=== PATIENT | male | born 1985 | race Asian ===

== ENCOUNTER 2016-10-03 07:51 | Emergency (ER) | payer BC ==
[2016-10-03 08:24] VITALS: BP 135/85
--- NOTE | 2016-10-03 08:48 | RAD ---
Indication: Chest discomfort. 2 views of the chest demonstrate no mediastinal shift. Heart is of normal size and configuration. Lung esquivel are clear. When compared to previous exam of October 30, 2013 no significant change is noted. IMPRESSION: No active cardiopulmonary disease is noted.
--- NOTE | 2016-10-03 09:06 | UC ---
Rhys, Abram Waters, [facility] 10[facility]03[facility]16 at 0856 . Cardiac HPI - HPI Summary HPI Summary: Nurse's Note; pt c/o cough. pt states "after coughing constantly i began to have chest pain to the lt side of my chest." pt states the pain comes with coughing. pt states he vomited this am and then his jaw started to hurt. pt states he began to have cold like symptoms yesterday. MD Note; bital, resp 18, pulse 96, 4/10, rare alcohol use, non-smoker, previous visits for cough, chest pain, and SOB dating back to 2009 otherwise non- contributory. Note EKG NSR no ischemia, CXR no acute disease. In Room Note; A 31 y/o male presents to [facility] with left sided chest pain since yesterday. The pain is rated 4/10 in severity and radiates into the jaw bilaterally. The patient states that he left work early yesterday after not feeling well. Once he got home, he began to have cough followed by chest pain, mild back pain, vomiting - only last night, and rhinorrhea. The patient's chest pain is constant and worse with coughing and laying in certain position. The jaw pain is also worse with coughing. He denies difficulty swallowing and diarrhea. FHx of CAD - mother had MT at approximately 55. After the patient had his wisdom teeth removed so time ago, he's been having clicking in the jaw. He also has a Hx of GERD and costochondritis of the sternum. - History of Current Complaint Chief Complaint: UCRespiratory Stated Complaint: CHEST PAIN JAW PAIN Time Seen by Provider: 10/03/16 08:08 Hx Obtained From: Patient Onset/Duration: Lasting Days, Still Present Timing: Constant Initial Severity: Moderate Current Severity: Moderate Pain Intensity: 4 Chest Pain Location: Left Lateral Aggravating: Position Associated Signs & Symptoms: Positive: Chest Pain, Nausea/Vomiting - vomiting yesterday only, Back Pain - mild - Allergy/Home Medications Allergies/Adverse Reactions: Allergies Allergy/AdvReac Type Severity Reaction Status Date / Time No Known Allergies Allergy Verified 08/29/14 19:46 Home Medications: Home Medications Acetaminophen [Acetaminophen Extra Stren] 500 mg PO 10/03/16 [History] PMH/Surg Hx/FS Hx/Imm Hx Endocrine History Of: Denies: Diabetes, Thyroid Disease Cardiovascular History Of: Denies: Cardiac Disorders, Hypertension Respiratory History Of: Denies: COPD, Asthma GI/ History Of: Denies: Ulcer - Surgical History Surgery Procedure, Year, and Place: [place]eth - Family History Known Family History: Positive: Cardiac Disease - Mother had an MT at ~55 - Social History Occupation: Employed Full-time Alcohol Use: Rare Substance Use Type: None Smoking Status (MU): Never Smoked Tobacco Review of Systems Constitutional: Negative Skin: Negative Eyes: Negative ENT: Nasal Discharge, Other - Jaw Pain Bialterally Respiratory: Cough Cardiovascular: Chest Pain Gastrointestinal: Vomiting - last night Genitourinary: Negative Motor: Negative Neurovascular: Negative Musculoskeletal: Myalgia - mild back pain Neurological: Negative Psychological: Negative All Other Systems Reviewed And Are Negative: Yes Physical Exam Triage Information Reviewed: Yes Appearance: Well-Appearing, No Pain Distress, Well-Nourished Vital Signs: Initial Vital Signs Temp 98.4 F 10/03/16 08:20 Pulse 92 10/03/16 08:20 Resp 18 10/03/16 08:20 BP 135/85 10/03/16 08:20 Pulse Ox 96 10/03/16 08:20 Vital Signs Reviewed: Yes Eyes: Positive: Conjunctiva Clear ENT: Positive: Hearing grossly normal. Negative: Pharyngeal erythema, Tonsillar exudate, Muffled/hoarse voice Neck: Positive: Supple, No Lymphadenopathy Respiratory: Positive: Chest non-tender, Lungs clear, Normal breath sounds, No respiratory distress, Other: - MILD DISCOMFORT WITH PALPATION IN AREA OF STERNUM ; NO LEFT SHOULDER PAIN WITH MOVEMENT.. Negative: Plerual rub Cardiovascular: Positive: RRR, No Murmur Abdomen Description: Positive: Nontender, No Organomegaly, Soft Bowel Sounds: Positive: Present Musculoskeletal: Positive: Strength Intact, Other: - CURRY Neurological: Positive: Alert Psychological: Positive: Age Appropriate Behavior Skin: Negative: rashes Diagnostics - Radiology CXR Xray Interpretation: No Acute Changes - IMPRESSION: No active cardiopulmonary disease is noted. Radiology Interpretation Completed By: Radiologist - EKG Cardiac Rate: NL - 85 bpm Cardiac Rhythm: Sinus: Normal - No Ischemia; 08:09 - Assessment/Plan Course Of Treatment: The patients EKG and CXR are normal. The physical was also normal . Discussed with the patient that his cough has aggravated his costochondritis and he will treat this with ibuprofen and Vicodin. He will follow-up for any new or worsening symptoms. ISTOP reference number [id number]; No recent opioid use noted - Differential Diagnoses - Chest Pain Differential Diagnosis/HQI/PQRI: Other: - Cardiac pain vs pneumonia vs costochondritis - Clinical Impression Provider Diagnoses: Costochondritis; Cervical muscle strain; Chest wall muscle strain Discharge - Discharge Plan Condition: Stable Disposition: HOME Prescriptions: HYDROcodone/ACETAMIN 5-325 MG* [[place]over 5-325 TAB*] 1 tab PO Q6H #10 tab MDD 4 Ibuprofen TAB* [Motrin TAB* 800 MG] 800 mg PO Q8HR #14 tab Patient Education Materials: Costochondritis (ED), Upper Respiratory Infection (ED) Referrals: Eben Montague MD [Primary Care Provider] - Additional Instructions: WE DISCUSSED: You have a respiratory infection that doesn't require an antibiotic. Your EKG and chest x ray were normal. You have costochondritis. Use ibuprofen for inflammation and Vicodin for pain. Warm, moist heat to the area. Go to ED for temperature, shortness of breath, worsening cough or chest pain. The documentation as recorded by the Evelin izaguirre Matthew accurately reflects the service I personally performed and the decisions made by , Melvin Castellanos MD.
== END 2016-10-03 09:12 | disposition home or self-care (01) ==
LOC: UCEAST 07:51
DX: M94.0 Chondrocostal junction syndrome [Tietze] (principal); S16.1XXA Strain of muscle, fascia and tendon at neck level, initial encounter; S29.011A Strain of muscle and tendon of front wall of thorax, initial encounter; X58.XXXA Exposure to other specified factors, initial encounter; Y93.9 Activity, unspecified; Y92.9 Unspecified place or not applicable; R68.84 Jaw pain
CPT/HCPCS: 71020; 93005; 99212; G0463

== ENCOUNTER 2018-07-28 17:16 | Emergency (ER) | payer BC ==
[2018-07-28 17:55] VITALS: BP 124/81
--- NOTE | 2018-07-28 18:40 | UC ---
Respiratory Complaint HPI - HPI Summary HPI Summary: 33 yo male presents with productive cough, sinus pain/pressure/congestion, and post nasal drip for the last week. Discomfort is mostly in the frontal sinuses. He has been taking a tylenol cold and sinus OTC medication with no relief. He has felt warm/cold at times, but has not taken his temperature. Denies sore throat, SOB, chest pain, n/v. - History of Current Complaint Chief Complaint: UCRespiratory Stated Complaint: SINUS CONGESTION, AND COUGH Time Seen by Provider: 07/28/18 18:39 Hx Obtained From: Patient Onset/Duration: Gradual Onset Severity Initially: Mild Severity Currently: Mild Pain Intensity: 4 Pain Scale Used: 0-10 Numeric Character: Cough: Productive - Allergies/Home Medications Allergies/Adverse Reactions: Allergies Allergy/AdvReac Type Severity Reaction Status Date / Time No Known Allergies Allergy Verified 07/28/18 17:55 Home Medications: Home Medications Guaifen/Phenyleph/Acetaminophn [Tylenol Sinus Severe Caplet] 2 each PO PRN 07/28 [History] PMH/Surg Hx/FS Hx/Imm Hx - Additional Past Medical History Additional PMH: None - Surgical History Surgical History: Yes Surgery Procedure, Year, and Place: [place] - Family History Known Family History: Positive: Cardiac Disease - Mother had an [place] at ~55 - Social History Occupation: Employed Full-time Lives: With Family Alcohol Use: None Substance Use Type: None Smoking Status (MU): Never Smoked Tobacco Review of Systems All Other Systems Reviewed And Are Negative: Yes Constitutional: Positive: Negative Skin: Positive: Negative Eyes: Positive: Negative ENT: Positive: Nasal Discharge, Sinus Congestion, Sinus Pain/Tenderness Respiratory: Positive: Cough Cardiovascular: Positive: Negative Gastrointestinal: Positive: Negative Neurological: Positive: Negative Psychological: Positive: Negative Physical Exam - Summary Physical Exam Summary: GENERAL: NAD. WDWN. No pain distress. SKIN: No rashes, sores, lesions, or open wounds. HEENT: Head: AT/NC Eyes: EOM intact. Conjunctiva clear without inflammation or discharge. Ears: Hearing grossly normal. TMs intact, no bulging, erythema, or edema. Nose: Nasal mucosa mildly swollen and erythematous with yellow/ clear discharge. TTP frontal sinus. Throat: Posterior oropharynx without exudates, erythema, or tonsillar enlargement. Uvula midline. NECK: Supple. Nontender. No lymphadenopathy. CHEST: CTAB. No r/r/w. No accessory muscle use. Breathing comfortably and in no distress. CV: RRR. Without m/r/g. Pulses intact. NEURO: Alert. PSYCH: Age appropriate behavior. Triage Information Reviewed: Yes Vital Signs: Initial Vital Signs Temp 98.9 F 07/28/18 17:52 Pulse 75 07/28/18 17:52 Resp 16 07/28/18 17:52 BP 124/81 07/28/18 17:52 Pulse Ox 97 07/28/18 17:52 Vital Signs Reviewed: Yes Diagnostic Evaluation - Laboratory O2 Sat by Pulse Oximetry: 97 Respiratory Course/Dx - Course Course Of Treatment: Sinusitis. Cough. - Differential Dx/Diagnosis Provider Diagnosis: Cough, Sinusitis Discharge - Sign-Out/Discharge Documenting (check all that apply): Patient Departure All imaging exams completed and their final reports reviewed: No Studies - Discharge Plan Condition: Stable Disposition: HOME Prescriptions: Azithromycin TAB* [Zithromax TAB (Z-GABRIELLE) 250 mg #6 tabs] 2 tab PO .TODAY, THEN 1 DAILY #1 gabrielle Benzonatate CAP* [Tessalon 100 MG CAP*] 100 mg PO TID PRN #15 cap PRN Reason: Cough Patient Education Materials: Sinusitis (ED), Acute Bronchitis (ED) Referrals: No Primary Care Phys,NOPCP [Primary Care Provider] - Additional Instructions: If you develop a fever, shortness of breath, chest pain, new or worsening symptoms - please call your PCP or go to the ED. - Billing Disposition and Condition Condition: STABLE Disposition: Home
== END 2018-07-28 19:12 | disposition home or self-care (01) ==
LOC: UCEAST 17:16
DX: J32.9 Chronic sinusitis, unspecified (principal); R05 Cough
CPT/HCPCS: 99212; G0463

== ENCOUNTER 2018-11-11 17:18 | Emergency (ER) | payer BC ==
[2018-11-11 17:42] VITALS: BP 143/103
== END 2018-11-11 19:42 | disposition left against medical advice (07) ==
LOC: ED 17:18
DX: R50.9 Fever, unspecified (principal); Z53.21 Procedure and treatment not carried out due to patient leaving prior to being seen by health care provider